=== PATIENT | female | born 1990 | race Caucasian/White ===

== ENCOUNTER 2016-09-23 08:33 | Emergency (ER) | payer SELFPAY ==
[~2016-09-23] VITALS: Ht 170.2 cm; Wt 69.1 kg
[~2016-09-23 08:33] MED LIST: PREN0.01 PO
[2016-09-23 08:35] VITALS: BP 144/82; PULSE 102; RESP 14; TEMP 97.8; O2SAT 98
--- NOTE | 2016-09-23 09:41 | PD ---
HPI Chief Complaint: ENT Complaint Time Seen by Provider: 09:35 Travel History International Travel<30 days: No Contact w/Intl Traveler<30days: No Traveled to known affect area: No History of Present Illness HPI Patient's 26-year-old female presenting with "I think I have impacted ear wax " . This has happened to her several times in the past. She states she uses Q- tips and denies a demented for imaging eardrum. She states that his morning she got a lot of wax out of her left ear it does feel somewhat better. She denies any otorrhea or bleeding. She denies complete hearing loss but states sounds do feel muffled. She states this when she's had a mild sore throat but denies inability to swallow or difficulty breathing. She denies fever, chills, nausea, vomiting, lymphadenopathy abdominal pain. She denies chest pain, shortness of breath, tachycardia palpitations. History Past Medical Histgory LMP: 09/16/16 Hx Cancer: No Social History Alcohol Use: No Tobacco Use: No Allergies-Medications (Allergen,Severity, Reaction): Coded Allergies: No Known Allergies (Verified , 09/23/16) Reported Meds & Prescriptions Reported Meds & Active Scripts Active No Active Prescriptions or Reported Medications Review of Systems General / Constitutional: No: Fever, Chills HENT: Positive: Sore Throat (mild), Earache (see the history of present illness ), No: Headaches, Vertigo, Rhinitis, Congestion Cardiovascular: No: Chest Pain or Discomfort, Palpitations, Irregular Rhythm, Tachycardia Respiratory: No: Shortness of Breath, Stridor Gastrointestinal: No: Abdominal Pain Physical Exam Narrative GENERAL: Well-developed and well-nourished adult female in no acute distress. SKIN: Warm and dry. Good turgor without tenting. HEAD: Normocephalic and atraumatic. EYES: PERRL bilaterally, 5mm. EOMI bilaterally. No injection or icterus present. No proptosis. Lids without edema or erythema. ENT: Right ear canal is occluded with cerumen completely. No edema or erythema of the canal wall. Left ear canal is partially occluded cerumen inferiorly, wall has no edema or erythema area no exudate. Left TM has intact landmarks and without distortion, perforation, air-fluid level or erythema. Nasal mucosa pink and moist without discharge, septum intact and midline. Buccal mucosa pink and moist. Oropharynx free of erythema, tonsillar hypertrophy, masses, swelling , asymmetry and exudates. Uvula midline and airway patent. NECK: Supple, no meningeal sign. Trachea midline, no JVD. No cervical or facial lymphadenopathy. CARDIOVASCULAR: Regular rate and rhythm without murmurs, rubs, clicks or gallops. Radial pulses 2+ bilaterally. RESPIRATORY: Clear to auscultation bilaterally with symmetrical rise and fall, no distress or use of accessory muscles. MUSCULOSKELETAL: No gait disturbances. Patient freely moving all four extremities spontaneously. Extremities without clubbing, cyanosis, or edema. No obvious deformities. NEUROLOGIC: CN II-XII grossly intact. Awake and alert. Motor grossly within normal limits. Normal speech. PSYCHIATRIC: Appropriate mood and affect; insight and judgment normal. Data Data Last Documented VS Vital Signs Date Time Temp Pulse Resp B/P Pulse Ox O2 Delivery O2 Flow Rate FiO2 09/23/16 08:35 97.8 102 14 144/82 98 MDM Medical Screen Exam Complete: Yes Emergency Medical Condition: No Narrative Course Patient's 26-year-old female with chief complaint of cerumen impaction. She was able to clear the impaction on the left with Q-tips which she brought in to showing a large amount of cerumen she removed. There are no foreign bodies or blood or exudate. Evaluation of the left ear reveals only mild cerumen in the canal without occlusion, TMs normal. Right ear canal is occluded. Patient has mild sore throat beginning this morning. She is afebrile and nontoxic appearing and has no auditory or other concerning symptoms. Oropharynx unremarkable. Is recommending home treatment for her symptoms and the patient asked about ear lavage. I explained that this is not warranted emergently at this time and recommended OTC medications and follow up with her PCP this week and she elected to not continue her care further. A medical screening exam was performed: At the time of evaluation the presenting medical condition was determined not to be of an emergent nature. The patient was given the option of receiving additional care, but declined. Patient was given options for additional community resources from which to obtain care. The Patient Has Been advised to seek medical attention for their presenting complaint. The patient has been advised to return to the ER at any time if an emergent condition develops. Primary Impression: Encounter for medical screening examination Scripts No Active Prescriptions or Reported Meds Condition: Stable Krogh,Kareem III PA Sep 23, 2016 09:41
== END 2016-09-23 12:29 | disposition left against medical advice (07) ==
LOC: NEPB 08:33
DX: J02.9 Acute pharyngitis, unspecified (principal)
CPT/HCPCS: 99281

== ENCOUNTER 2016-11-24 09:13 | Emergency (ER) | payer SELFPAY ==
[~2016-11-24] VITALS: Ht 170.2 cm; Wt 81.6 kg
[2016-11-24 09:21] VITALS: BP 116/75; PULSE 79; RESP 15; TEMP 98.6; O2SAT 100
[2016-11-24] MEDS ORDERED: MOTR200T4 PO (09:55)
[2016-11-24] MEDS ORDERED: GUAI100L5 PO (09:55)
--- NOTE | 2016-11-24 09:55 | PD ---
HPI Chief Complaint: Cold / Flu Symptoms Time Seen by Provider: 09:36 Travel History International Travel<30 days: No Contact w/Intl Traveler<30days: No Traveled to known affect area: No History of Present Illness HPI 26-year-old female with no significant past medical issues, presents to the ER today because she is having intermittent history of coughing, sore throat, nausea, nasal congestion for several days. She states that she has had some intermittent symptoms for the past 2 weeks. She states that several coworkers have had some similar symptoms as well. She denies any fevers, vomiting, diarrhea, or any other symptoms. Her son also has had several days' history of symptoms. Modifying Factors: None Associated Signs & Symptoms: Cough, nasal congestion, nausea, sore throat Risk Factors: Sick contacts PFSH Past Medical History ADHD: No Bipolar Disorder: Yes (Patient denies Hx of Tx) Cancer: No Cardiovascular Problems: No Developmental Delay: No Diabetes: No Psychiatric: Yes (MOTHER REPORTS PREVIOUS DIAGNOSIS OF BIPOLAR - NO MEDS AT THIS TIME) Migraines: No Seizures: No Thyroid Disease: No Ulcer: No ?: Unknown LMP: 3 WEEKS : 1 Para: 0 Miscarriage: 0 : 0 Past Surgical History Appendectomy: Yes Cholecystectomy: No Other Surgery: Yes (APPENDECTOMY - AGE 2 1/2) Social History Alcohol Use: No Tobacco Use: No Substance Use: No Allergies-Medications (Allergen,Severity, Reaction): Coded Allergies: No Known Allergies (Verified , 11/24/16) Reported Meds & Prescriptions Reported Meds & Active Scripts Active No Active Prescriptions or Reported Medications Review of Systems Except as stated in HPI: all other systems reviewed are Neg Physical Exam Narrative GENERAL: Young white female patient currently not in acute distress. Awake and oriented 3. SKIN: Warm and dry. HEAD: Atraumatic. Normocephalic. EYES: Pupils equal and round. No scleral icterus. No injection or drainage. ENT: No nasal bleeding or discharge. Mucous membranes pink and moist. Mild pharyngeal erythema. No significant exudates. Tonsillar pillars are symmetrical. NECK: Trachea midline. No JVD. CARDIOVASCULAR: Regular rate and rhythm. No murmur appreciated. RESPIRATORY: No accessory muscle use. Clear to auscultation. Breath sounds equal bilaterally. GASTROINTESTINAL: Abdomen soft, non-tender, nondistended. Hepatic and splenic margins not palpable. MUSCULOSKELETAL: No obvious deformities. No clubbing. No cyanosis. No edema. NEUROLOGICAL: Awake and alert. No obvious cranial nerve deficits. Motor grossly within normal limits. Normal speech. PSYCHIATRIC: Appropriate mood and affect; insight and judgment normal. Data Data Last Documented VS Vital Signs Date Time Temp Pulse Resp B/P Pulse Ox O2 Delivery O2 Flow Rate FiO2 11/24/16 09:21 98.6 79 15 116/75 100 MDM Medical Decision Making Medical Screen Exam Complete: Yes Emergency Medical Condition: Yes Medical Record Reviewed: Yes Differential Diagnosis Cough, cold symptomsURI versus bronchitis versus influenza versus pneumonia Narrative Course Exam is not indicative of underlying pneumonia. Vital signs are stable. Her son has had similar symptoms as well. Is suspect underlying viral syndrome. My plan would be to give her symptomatic relief for cough and congestion. Return for any worsening in symptoms as needed. The plan has been discussed with her and she states understanding. Diagnosis Primary Impression: URI (upper respiratory infection) Med/Other Pt SpecificInfo: Prescription(s) given Scripts Guaifenesin Liq (Robitussin Mucus+Chest Congestion Liq)100 Mg/5 Ml [id number] Mg PO Q6H PRN (CHEST CONGESTION) #1 BOTTLE Ref 0 Prov:Sanjeev Rosas MD 11/24/16 Ibuprofen (Motrin Ib)200 Mg [id number] Mg PO Q4H PRN (PAIN SCALE 1 TO 10) #20 TAB Ref 0 Prov:Sanjeev Rosas MD 11/24/16 Disposition: DISCHARGE HOME Condition: Stable Sanjeev Rosas MD Nov 24, 2016 09:55
== END 2016-11-24 10:04 | disposition home or self-care (01) ==
LOC: PHED 09:13
DX: J06.9 Acute upper respiratory infection, unspecified (principal)
CPT/HCPCS: 99283

== ENCOUNTER 2016-12-01 07:04 | Emergency (ER) | payer SELFPAY ==
[~2016-12-01] VITALS: Ht 170.2 cm; Wt 83.0 kg
[~2016-12-01 07:04] MED LIST changes: +GUAI100L5 PO; +MOTR200T4 PO; -PREN0.01 PO
[2016-12-01 07:09] VITALS: BP 123/76; PULSE 84; RESP 14; TEMP 98.3; O2SAT 98
[2016-12-01] MEDS ORDERED: AZIT250T3 PO (07:46)
--- NOTE | 2016-12-01 07:46 | PD ---
HPI Chief Complaint: ENT Complaint Time Seen by Provider: 07:28 Travel History International Travel<30 days: No Contact w/Intl Traveler<30days: No Traveled to known affect area: No History of Present Illness HPI This is a 26-year-old female who presents to the emergency department with 2 weeks of nasal congestion, productive cough with yellow sputum, and a fever to 100.8 yesterday. Her symptoms of been constant and not improve despite being seen in the ER 1 week ago and prescribed ibuprofen and guaifenesin. He reports that over the past several days she can't hear out of her right ear and feels like her ears are clogged. She put peroxide in her right ear and felt like it was burning and then read on the Internet that she should come to the hospital to be evaluated. PFSH Past Medical History ADHD: No Bipolar Disorder: Yes (Patient denies Hx of Tx) Cancer: No Cardiovascular Problems: No Developmental Delay: No Diabetes: No Diminished Hearing: No Psychiatric: Yes (MOTHER REPORTS PREVIOUS DIAGNOSIS OF BIPOLAR - NO MEDS AT THIS TIME) Migraines: No Seizures: No Thyroid Disease: No Ulcer: No Tetanus Vaccination: Unknown ?: Not LMP: NOW : 1 Para: 0 Miscarriage: 0 : 0 Past Surgical History Appendectomy: Yes Cholecystectomy: No Other Surgery: Yes (APPENDECTOMY - AGE 2 1/2) Social History Alcohol Use: Yes (SOC) Tobacco Use: No Substance Use: No Allergies-Medications (Allergen,Severity, Reaction): Coded Allergies: No Known Allergies (Verified , 12/01/16) Reported Meds & Prescriptions Reported Meds & Active Scripts Active No Active Prescriptions or Reported Medications Review of Systems Except as stated in HPI: all other systems reviewed are Neg Physical Exam Narrative GENERAL:Well appearing, no acute distress SKIN: Warm and dry. HEAD: Atraumatic. Normocephalic. EYES: Pupils equal and round. No injection or drainage. Right tympanic membrane is completely included by cerumen, left tympanic membrane is partially included by cerumen ENT: Moist mucous membranes. Erythema of the bilateral nares. Mild posterior pharyngeal erythema with no exudates. Midline uvula. No cervical lymphadenopathy. NECK: Trachea midline. CARDIOVASCULAR: Regular rate and rhythm. No murmur appreciated. RESPIRATORY: Clear to auscultation. Breath sounds equal bilaterally. GASTROINTESTINAL: Abdomen soft, non-tender, nondistended. MUSCULOSKELETAL: No obvious deformities. NEUROLOGICAL: Awake and alert. No obvious cranial nerve deficits. Moving all extremities. PSYCHIATRIC: Appropriate mood and affect; insight and judgment normal. Data Data Last Documented VS Vital Signs Date Time Temp Pulse Resp B/P Pulse Ox O2 Delivery O2 Flow Rate FiO2 12/01/16 07:09 98.3 84 14 123/76 98 Orders Ear Irrigation (12/01/16 07:34) MDM Medical Decision Making Medical Screen Exam Complete: Yes Emergency Medical Condition: Yes Interpretation(s) Afebrile, no tachycardia, normotensive Differential Diagnosis Upper respiratory infection, bronchitis, cerumen impaction, otitis media Narrative Course This is a 26-year-old female who presented one week ago for an upper respiratory infection which has not improved. She does have a history of smoking. She has evidence of cerumen impaction on the right. Given the duration of her symptoms at think it's reasonable to prescribe her azithromycin for bronchitis. Patient had irrigation performed in the emergency department. She is otherwise well-appearing and She'll be discharged home. Diagnosis Primary Impression: Bronchitis Additional Impression: Cerumen impaction Qualified Code: H61.21 - Impacted cerumen of right ear Patient Instructions: General Instructions Additional Instructions: If you develop severe chest pain, shortness of breath, sweating, lightheadedness , dizziness or difficulty breathing return to the emergency department immediately. Followup with your primary care physician in 2-3 days if your symptoms are not resolved. Med/Other Pt SpecificInfo: Prescription(s) given Scripts Azithromycin 250 Mg [id number] Mg PO DIRECTED #6 TAB Take 2 tabs (500 mg) on day 1 then 1 tab daily x 4 days. Prov:Bella Raya MD 12/01/16 Disposition: 01 DISCHARGE HOME Condition: Stable Bella Raya MD Dec 01, 2016 07:46
== END 2016-12-01 08:27 | disposition home or self-care (01) ==
LOC: PHED 07:04
DX: J40 Bronchitis, not specified as acute or chronic (principal); H61.23 Impacted cerumen, bilateral; F31.9 Bipolar disorder, unspecified
CPT/HCPCS: 99283

== ENCOUNTER 2017-08-05 09:26 | Emergency (ER) | payer SELFPAY ==
[~2017-08-05] VITALS: Ht 170.2 cm; Wt 85.0 kg
[~2017-08-05 09:26] MED LIST changes: +AZIT250T3 PO; -GUAI100L5 PO; -MOTR200T4 PO
[2017-08-05 09:30] VITALS: BP 125/79; PULSE 88; RESP 18; TEMP 98.6; O2SAT 97
--- NOTE | 2017-08-05 09:41 | PD ---
HPI . Cold Chief Complaint: Cold / Flu Symptoms Time Seen by Provider: 09:34 Travel History International Travel<30 days: No Contact w/Intl Traveler<30days: No Traveled to known affect area: No History of Present Illness HPI Patient presents complaining with a cold for the last week. She reports nasal congestion, rhinorrhea, cough. Symptoms have been unrelieved by DayQuil and Aleve. Her MAXIMUM TEMPERATURE has been about 100. PFSH Past Medical History ADHD: No Bipolar Disorder: Yes (Patient denies Hx of Tx) Cancer: No Cardiovascular Problems: No Developmental Delay: No Diabetes: No Diminished Hearing: No Psychiatric: Yes (MOTHER REPORTS PREVIOUS DIAGNOSIS OF BIPOLAR - NO MEDS AT THIS TIME) Migraines: No Seizures: No Thyroid Disease: No Ulcer: No ?: Not LMP: 07/30/2017 : 1 Para: 0 Miscarriage: 0 : 0 Past Surgical History Appendectomy: Yes Cholecystectomy: No Other Surgery: Yes (APPENDECTOMY - AGE 2 1/2) Social History Alcohol Use: Yes (SOC) Tobacco Use: No Substance Use: No Allergies-Medications (Allergen,Severity, Reaction): Coded Allergies: No Known Allergies (Verified Adverse Reaction, Unknown, 08/05/17) Reported Meds & Prescriptions Reported Meds & Active Scripts Active Azithromycin 250 Mg Tab 250 Mg PO DIRECTED Take 2 tabs (500 mg) on day 1 then 1 tab daily x 4 days. Review of Systems Except as stated in HPI: all other systems reviewed are Neg General / Constitutional: Positive: Fever HENT: Positive: Rhinorrhea, Congestion Respiratory: Positive: Cough Physical Exam Narrative GENERAL: Awake and alert and in no acute distress. SKIN: Warm and dry. HEAD: Normocephalic/atraumatic. EYES: Pupils are equal. Extraocular movements are intact. ENT: Nose has some white rhinorrhea. Oropharynx is clear. NECK: Normal range of motion. No cervical lymphadenopathy. CARDIOVASCULAR: Regular rate and rhythm. RESPIRATORY: Nonlabored respirations. Lungs are clear with full air movement throughout. MUSCULOSKELETAL: Atraumatic. NEUROLOGICAL: Nonfocal. PSYCHIATRIC: Appropriate mood and affect. Data Data Last Documented VS Vital Signs Date Time Temp Pulse Resp B/P (MAP) Pulse Ox O2 Delivery O2 Flow Rate FiO2 08/05/17 09:30 98.6 88 18 125/79 (94) 97 MDM Medical Decision Making Medical Screen Exam Complete: Yes Emergency Medical Condition: Yes Differential Diagnosis Differential diagnosis includes but is not limited to influenza, upper respiratory infection, bronchitis, pneumonia Narrative Course Patient presents with a one-week history of cold symptoms. Her physical exam is remarkable only for rhinorrhea. She will be discharged to home with instructions on symptomatic care. Diagnosis Primary Impression: URI (upper respiratory infection) Qualified Codes: J06.9 - Acute upper respiratory infection, unspecified; B97.89 - Other viral agents as the cause of diseases classified elsewhere Patient Instructions: General Instructions, Upper Respiratory Infection (DC) Additional Instructions: I recommend the use of a Neti Pot. You may use a nasal spray such as Afrin for up to 3 days as needed for nasal congestion. You may take an [id number] antihistamine such as Zyrtec, Mary Jane or Claritin as needed for runny secretions. You may take pseudoephedrine as needed for congestion. You will need to sign for this at the pharmacy. You may take plain Mucinex, 1200 mg twice a day as needed for thick secretions. You may take a cough syrup such as Delsym as needed for cough. Motrin as needed for fever and body aches. Throat lozenges/sprays as needed for sore throat. Warm salt water gargles for sore throat. Hot tea with lemon and honey also helps soothe a sore throat. Disposition: 01 DISCHARGE HOME Condition: Stable Marce Enriquez MD Aug 05, 2017 09:41
== END 2017-08-05 09:59 | disposition home or self-care (01) ==
LOC: PHEFT 09:26
DX: J06.9 Acute upper respiratory infection, unspecified (principal); B97.89 Other viral agents as the cause of diseases classified elsewhere
CPT/HCPCS: 99282

== ENCOUNTER 2018-01-06 11:14 | Emergency (ER) | payer SELFPAY | END 2018-01-06 12:19 | disposition home or self-care (01) | LOC: PHEFT 11:14 | DX: J06.9 Acute upper respiratory infection, unspecified (principal); Z72.0 Tobacco use | CPT/HCPCS: 87081; 87880; 99283 ==

== ENCOUNTER 2018-01-07 08:47 | Emergency (ER) | payer SELFPAY | END 2018-01-07 09:18 | disposition home or self-care (01) | LOC: PHED 08:47 | DX: J04.0 Acute laryngitis (principal); J02.9 Acute pharyngitis, unspecified; R05 Cough; Z72.0 Tobacco use | CPT/HCPCS: 99283 ==